=== PATIENT | female | born 1975 | race Caucasian/White ===

== ENCOUNTER 2016-08-03 13:43 | Inpatient (IN) | payer MEDICARE, MEDICAID ==
[~2016-08-03 13:43] MED LIST: CLOZ100 PO; MULT-1238 PO
[2016-08-03] MEDS ORDERED: LORazepam 2 MG TABLET PO PRN (16:15)
[2016-08-03] MEDS ORDERED: ZOLPIDEM TARTRATE 10 MG TABLET PO PRN (16:15)
[2016-08-03 16:18] VITALS: BP 112/79
[2016-08-03 16:39] VITALS: BP 129/77
[2016-08-04 03:40] VITALS: BP 128/76
[2016-08-04 16:05] VITALS: BP 112/66
[2016-08-05 09:16] LABS: BASOPHILS # (AUTO) 0.02 K/uL (0.00-0.20); BASOPHILS % (AUTO) 0.3 % (0.0-2.0); EOSINOPHILS # (AUTO) 0.08 K/uL (0.00-0.70); EOSINOPHILS % (AUTO) 1.04 % (1.0-6.0); HEMATOCRIT 37.7 % (36-46); HEMOGLOBIN 12.2 g/dL (12.0-16.0); LYMPHOCYTES # (AUTO) 1.9 K/uL (1.0-4.8); MEAN CORPUSCULAR HEMOGLOBIN 26.4 pg (26.0-34.0); MEAN CORPUSCULAR HGB CONC 32.4 G/dL (31.0-37.0); MEAN CORPUSCULAR VOLUME 81 fL (80-100); MONOCYTES # (AUTO) 0.3 K/uL (0.1-1.0); MONOCYTES % (AUTO) 4.4 % (2.0-9.0); NEUTROPHILS # (AUTO) 5.2 K/uL (1.8-7.7); NEUTROPHILS % (AUTO) 69.3 % (40.0-70.0); PLATELET COUNT (AUTO) 387 K/uL (150-450); RED BLOOD CELL COUNT(AUTO) 4.63 MIL/uL (4.00-5.20); RED CELL DISTRIBUTION WIDTH 13.7 % (11.5-14.5); WHITE BLOOD COUNT (AUTO) 7.5 K/uL (4.5-11.0)
[2016-08-05 09:37] LABS: ALANINE AMINOTRANSFERASE 31 U/L (12-78); ANION GAP 11 mmol/L (8-16); ASPARTATE AMINOTRANSFERASE 17 U/L (15-37); BILIRUBIN,TOTAL 0.5 mg/dL (0.1-1.0); CALCIUM, TOTAL 9.1 mg/dL (8.8-10.5); CARBON DIOXIDE 27 mmol/L (22-29); CHLORIDE 103 mmol/L (98-107); CHOL/HDL RATIO 5.2 (3.9-5.7); CREATININE 0.79 mg/dL (0.60-1.30); GLOMERULAR FILTR. RATE CALC > 60 mL/min (>60); POTASSIUM 4.4 mmol/L (3.5-5.1); SODIUM SERUM 141 mmol/L (136-145); TOTAL PROTEIN, SERUM 7.5 g/dL (6.4-8.2); UREA NITROGEN, BLOOD 15 mg/dL (7-18)
[2016-08-05 21:22] VITALS: BP 110/68
[2016-08-05] MEDS: PALIPERIDONE PALMITATE 234 MG/1.5 ML SYRINGE IM SCH (21:26)
[2016-08-06 16:13] VITALS: BP 122/81
[2016-08-07 05:46] VITALS: BP 118/63
[2016-08-07 08:28] VITALS: BP 112/76
[2016-08-08 03:38] VITALS: BP 121/77
[2016-08-08 08:19] VITALS: BP 127/68
[2016-08-08 16:26] VITALS: BP 140/84
[2016-08-09 01:34] VITALS: BP 128/77
[2016-08-09 08:04] VITALS: BP 124/75
[2016-08-09 16:07] VITALS: BP 123/72
[2016-08-10 06:40] VITALS: BP 131/66
[2016-08-10 08:30] VITALS: BP 128/72
[2016-08-10 16:25] VITALS: BP 127/77
[2016-08-11 03:29] VITALS: BP 130/76
[2016-08-11 16:33] VITALS: BP 125/82
[2016-08-12 03:35] VITALS: BP 123/74
[2016-08-12 08:07] VITALS: BP 132/71
[2016-08-12 16:29] VITALS: BP 100/60
[2016-08-13 08:22] VITALS: BP 120/74
[2016-08-13 16:00] VITALS: BP 153/76
[2016-08-14 03:42] VITALS: BP 140/78
[2016-08-14 16:02] VITALS: BP 148/79
[2016-08-15 03:32] VITALS: BP 130/78
[2016-08-15 08:21] VITALS: BP 112/73
[2016-08-15 16:30] VITALS: BP 113/71
[2016-08-16 05:32] VITALS: BP 110/72
[2016-08-16 08:17] VITALS: BP 108/95
[2016-08-17 06:43] VITALS: BP 142/77
[2016-08-17 08:15] VITALS: BP 111/80
[2016-08-18 08:06] VITALS: BP 106/64
[2016-08-18 16:00] VITALS: BP 102/70
[2016-08-19 06:18] VITALS: BP 122/83
[2016-08-19 08:13] VITALS: BP 132/70
[2016-08-19 16:00] VITALS: BP 108/67
[2016-08-20 05:37] VITALS: BP 118/74
[2016-08-21 02:00] VITALS: BP 114/76
[2016-08-21 16:00] VITALS: BP 123/82
[2016-08-22 02:21] VITALS: BP 106/77
[2016-08-22 16:06] VITALS: BP 111/68
[2016-08-23 02:57] VITALS: BP 109/71
[2016-08-23] MEDS ORDERED: PERMETHRIN 1% 60 ML LOTION TP ONE (12:00)
[2016-08-24 08:30] VITALS: BP 109/72
[2016-08-24 16:24] VITALS: BP 125/80
[2016-08-25 08:21] VITALS: BP 117/74
[2016-08-25] MEDS ORDERED: IVERMECTIN 3 MG TABLET PO ONE (17:30)
[2016-08-25 17:46] VITALS: BP 118/80
[2016-08-26] MEDS: HALOPERIDOL 5 MG TABLET PO PRN (08:07)
[2016-08-26] MEDS: DIVALPROEX SODIUM 250 MG ER TABLET PO SCH ×3 (08:07→17:00)
[2016-08-26 16:28] VITALS: BP 122/81
[2016-08-27] MEDS: DIVALPROEX SODIUM 250 MG ER TABLET PO SCH ×2 (08:06→17:00)
[2016-08-27 08:30] VITALS: BP 124/76
[2016-08-27] MEDS ORDERED: ZOLPIDEM TARTRATE 10 MG TABLET PO PRN (13:45)
[2016-08-27 16:24] VITALS: BP 123/95
[2016-08-28 08:43] VITALS: BP 119/81
[2016-08-28] MEDS: DIVALPROEX SODIUM 250 MG ER TABLET PO SCH ×2 (09:00→17:00)
[2016-08-29 08:36] VITALS: BP 117/68
[2016-08-29] MEDS: DIVALPROEX SODIUM 250 MG ER TABLET PO SCH ×2 (09:00→17:00)
[2016-08-29 16:00] VITALS: BP 127/78
[2016-08-30 07:13] VITALS: BP 119/72
[2016-08-30 08:30] VITALS: BP 118/70
[2016-08-30] MEDS: DIVALPROEX SODIUM 250 MG ER TABLET PO SCH ×2 (08:37→17:00)
[2016-08-31 07:14] VITALS: BP 125/72
[2016-08-31 08:10] LABS: BASOPHILS % (AUTO) 0.2 % (0.0-2.0); EOSINOPHILS % (AUTO) 1.2 % (1.0-6.0); HEMATOCRIT 37.4 % (36-46); HEMOGLOBIN 12.2 g/dL (12.0-16.0); LYMPHOCYTES # (AUTO) 1.3 K/uL (1.0-4.8); LYMPHOCYTES % (AUTO) 17.9 % (22.0-44.0); MEAN CORPUSCULAR HEMOGLOBIN 26.2 pg (26.0-34.0); MEAN CORPUSCULAR HGB CONC 32.6 G/dL (31.0-37.0); MEAN CORPUSCULAR VOLUME 80 fL (80-100); MONOCYTES # (AUTO) 0.5 K/uL (0.1-1.0); MONOCYTES % (AUTO) 6.9 % (2.0-9.0); NEUTROPHILS # (AUTO) 5.5 K/uL (1.8-7.7); NEUTROPHILS % (AUTO) 73.8 % (40.0-70.0); PLATELET COUNT (AUTO) 419 K/uL (150-450); RED BLOOD CELL COUNT(AUTO) 4.66 MIL/uL (4.00-5.20); RED CELL DISTRIBUTION WIDTH 13.4 % (11.5-14.5); WHITE BLOOD COUNT (AUTO) 7.5 K/uL (4.5-11.0)
[2016-08-31 08:12] VITALS: BP 114/70
[2016-08-31] MEDS: DIVALPROEX SODIUM 250 MG ER TABLET PO SCH ×2 (09:00→17:00)
[2016-08-31 09:01] LABS: ALANINE AMINOTRANSFERASE 25 U/L (12-78); ANION GAP 10 mmol/L (8-16); ASPARTATE AMINOTRANSFERASE 14 U/L (15-37); BILIRUBIN,TOTAL 0.5 mg/dL (0.1-1.0); CALCIUM, TOTAL 8.9 mg/dL (8.8-10.5); CARBON DIOXIDE 26 mmol/L (22-29); CHLORIDE 101 mmol/L (98-107); CREATININE 0.71 mg/dL (0.60-1.30); GLOMERULAR FILTR. RATE CALC > 60 mL/min (>60); SODIUM SERUM 137 mmol/L (136-145); TOTAL PROTEIN, SERUM 7.6 g/dL (6.4-8.2); UREA NITROGEN, BLOOD 17 mg/dL (7-18)
[2016-08-31 09:03] LABS: VALPROIC ACID < 3 mcg/mL (50-100)
[2016-08-31 16:06] VITALS: BP 120/86
[2016-09-01 03:53] VITALS: BP 122/84
[2016-09-01] MEDS: DIVALPROEX SODIUM 250 MG ER TABLET PO SCH ×2 (08:54→17:00)
[2016-09-01] MEDS ORDERED: PERMETHRIN 1% 60 ML LOTION TP ONE (12:00)
[2016-09-01 16:00] VITALS: BP 112/64
[2016-09-02] MEDS: DIVALPROEX SODIUM 250 MG ER TABLET PO SCH ×2 (09:00→17:00)
[2016-09-02] MEDS: PALIPERIDONE PALMITATE 234 MG/1.5 ML SYRINGE IM SCH (09:07)
[2016-09-03 03:46] VITALS: BP 112/77
[2016-09-03] MEDS: DIVALPROEX SODIUM 250 MG ER TABLET PO SCH ×2 (08:22→17:00)
[2016-09-03 08:30] VITALS: BP 135/82
[2016-09-03] MEDS ORDERED: ZOLP10 PO (16:44)
[2016-09-03] MEDS ORDERED: LORA2TAB2 PO (16:44)
[2016-09-03] MEDS ORDERED: PALI234D IM (16:44)
[2016-09-03] MEDS ORDERED: DIVA250T25 PO (16:44)
[2016-09-03 22:47] VITALS: BP 136/81
[2016-09-04] VITALS (7 sets, daily range): BP systolic 107–120; BP diastolic 65–85
[2016-09-04] MEDS: DIVALPROEX SODIUM 250 MG ER TABLET PO SCH ×2 (08:43→16:52)
[2016-09-04] MEDS ORDERED: LEVOFLOXACIN 500 MG TABLET PO SCH (09:00)
[2016-09-04] MEDS ORDERED: LIDOCAINE HCL/PF 1% 2 ML VIAL IM ONE (09:30)
[2016-09-04] MEDS: CefTRIAXone SODIUM 1 GM/VIAL IM SCH (18:05)
[2016-09-04] MEDS ORDERED: ACETAMINOPHEN 325 MG TABLET PO PRN (21:00)
[2016-09-05 06:19] VITALS: BP 117/68
[2016-09-05 08:13] LABS: BASOPHILS % (AUTO) 0.3 % (0.0-2.0); EOSINOPHILS % (AUTO) 1.4 % (1.0-6.0); HEMATOCRIT 40.7 % (36-46); LYMPHOCYTES # (AUTO) 0.9 K/uL (1.0-4.8); LYMPHOCYTES % (AUTO) 22.8 % (22.0-44.0); MEAN CORPUSCULAR HEMOGLOBIN 25.8 pg (26.0-34.0); MEAN CORPUSCULAR HGB CONC 31.9 G/dL (31.0-37.0); MEAN CORPUSCULAR VOLUME 81 fL (80-100); MONOCYTES # (AUTO) 0.4 K/uL (0.1-1.0); MONOCYTES % (AUTO) 8.7 % (2.0-9.0); NEUTROPHILS # (AUTO) 2.8 K/uL (1.8-7.7); NEUTROPHILS % (AUTO) 66.8 % (40.0-70.0); PLATELET COUNT (AUTO) 281 K/uL (150-450); RED BLOOD CELL COUNT(AUTO) 5.04 MIL/uL (4.00-5.20); RED CELL DISTRIBUTION WIDTH 13.6 % (11.5-14.5); WHITE BLOOD COUNT (AUTO) 4.1 K/uL (4.5-11.0)
[2016-09-05 08:40] LABS: ALANINE AMINOTRANSFERASE 407 U/L (12-78); ANION GAP 11 mmol/L (8-16); ASPARTATE AMINOTRANSFERASE 314 U/L (15-37); BILIRUBIN,TOTAL 0.7 mg/dL (0.1-1.0); CALCIUM, TOTAL 8.5 mg/dL (8.8-10.5); CARBON DIOXIDE 26 mmol/L (22-29); CHLORIDE 97 mmol/L (98-107); CREATININE 0.76 mg/dL (0.60-1.30); GLOMERULAR FILTR. RATE CALC > 60 mL/min (>60); POTASSIUM 3.9 mmol/L (3.5-5.1); SODIUM SERUM 134 mmol/L (136-145); TOTAL PROTEIN, SERUM 7.7 g/dL (6.4-8.2); UREA NITROGEN, BLOOD 11 mg/dL (7-18)
[2016-09-05] MEDS: DIVALPROEX SODIUM 250 MG ER TABLET PO SCH ×2 (09:00→17:00)
[2016-09-05] MEDS: LEVOFLOXACIN 250 MG TABLET PO SCH ×2 (09:00→12:12)
[2016-09-05] MEDS: CefTRIAXone SODIUM 1 GM/VIAL IM SCH ×2 (09:00→12:12)
[2016-09-05 10:00] VITALS: BP 96/60
[2016-09-05 12:00] VITALS: BP 134/72
[2016-09-06] MEDS: LORazepam 2 MG TABLET PO PRN ×3 (00:15→13:32)
[2016-09-06 06:38] VITALS: BP 110/70
[2016-09-06 07:21] LABS: ALANINE AMINOTRANSFERASE 1879 U/L (12-78); ALBUMIN 3.6 g/dL (3.4-5.0); ANION GAP 8 mmol/L (8-16); BILIRUBIN,TOTAL 0.8 mg/dL (0.1-1.0); CARBON DIOXIDE 27 mmol/L (22-29); CHLORIDE 96 mmol/L (98-107); CREATININE 0.89 mg/dL (0.60-1.30); GLOMERULAR FILTR. RATE CALC > 60 mL/min (>60); POTASSIUM 3.9 mmol/L (3.5-5.1); SODIUM SERUM 131 mmol/L (136-145); TOTAL PROTEIN, SERUM 7.1 g/dL (6.4-8.2); UREA NITROGEN, BLOOD 10 mg/dL (7-18)
[2016-09-06 07:35] VITALS: BP 122/61
[2016-09-06 07:45] LABS: ASPARTATE AMINOTRANSFERASE 2160 U/L (15-37)
[2016-09-06] MEDS: DIVALPROEX SODIUM 250 MG ER TABLET PO SCH ×2 (09:00→17:55)
[2016-09-06] MEDS: LEVOFLOXACIN 250 MG TABLET PO SCH (09:19)
[2016-09-06] MEDS: HALOPERIDOL 5 MG TABLET PO PRN (09:19)
[2016-09-06 10:42] VITALS: BP 115/67
[2016-09-06] MEDS ORDERED: IBUPROFEN 600 MG TABLET PO PRN (11:15)
[2016-09-06] MEDS: CefTRIAXone SODIUM 1 GM/VIAL IM SCH (11:20)
[2016-09-06] MEDS ORDERED: OLANZapine 5 MG TABLET PO PRN (11:45)
[2016-09-06] MEDS ORDERED: IBUPROFEN 400 MG TABLET PO PRN (13:30)
[2016-09-06 15:00] VITALS: BP 120/78
[2016-09-06 19:00] VITALS: BP 122/62
[2016-09-06 23:00] VITALS: BP 130/68
[2016-09-07 06:30] LABS: INR 1.4 (0.9-1.1); PROTHROMBIN TIME 14.3 SEC (9.4-11.6)
[2016-09-07 06:57] LABS: ALBUMIN 3.6 g/dL (3.4-5.0); ANION GAP 8 mmol/L (8-16); CALCIUM, TOTAL 7.9 mg/dL (8.8-10.5); CARBON DIOXIDE 26 mmol/L (22-29); CHLORIDE 96 mmol/L (98-107); CREATININE 0.92 mg/dL (0.60-1.30); GLOMERULAR FILTR. RATE CALC > 60 mL/min (>60); POTASSIUM 3.6 mmol/L (3.5-5.1); SODIUM SERUM 130 mmol/L (136-145); TOTAL PROTEIN, SERUM 7.1 g/dL (6.4-8.2); UREA NITROGEN, BLOOD 11 mg/dL (7-18)
[2016-09-07 07:37] LABS: ASPARTATE AMINOTRANSFERASE 7004 U/L (15-37)
[2016-09-07 07:38] LABS: ALANINE AMINOTRANSFERASE 5802 U/L (12-78)
[2016-09-07 07:45] VITALS: BP 107/59
[2016-09-07] MEDS: DIVALPROEX SODIUM 250 MG ER TABLET PO SCH (09:17)
[2016-09-07] MEDS: LEVOFLOXACIN 250 MG TABLET PO SCH (09:18)
[2016-09-07] MEDS: CefTRIAXone SODIUM 1 GM/VIAL IM SCH (10:20)
[2016-09-07 11:00] VITALS: BP 117/71
[2016-09-07 12:25] LABS: ANION GAP 8 mmol/L (8-16); CARBON DIOXIDE 25 mmol/L (22-29); CHLORIDE 96 mmol/L (98-107); CREATININE 0.92 mg/dL (0.60-1.30); GLOMERULAR FILTR. RATE CALC > 60 mL/min (>60); POTASSIUM 3.7 mmol/L (3.5-5.1); SODIUM SERUM 129 mmol/L (136-145); UREA NITROGEN, BLOOD 11 mg/dL (7-18)
[2016-09-07 12:40] LABS: ALBUMIN 3.7 g/dL (3.4-5.0); BILIRUBIN,TOTAL 2.2 mg/dL (0.1-1.0); TOTAL PROTEIN, SERUM 7.4 g/dL (6.4-8.2)
[2016-09-07] MEDS ORDERED: MAGNESIUM HYDROXIDE SUSPENSION 30 ML UDCUP PO PRN (12:45)
[2016-09-07] MEDS ORDERED: PANTOPRAZOLE SODIUM 40 MG DR TABLET PO SCH (12:45)
[2016-09-07] MEDS ORDERED: ONDANSETRON HCL 4 MG/2 ML VIAL IVP PRN (12:45)
[2016-09-07 12:53] LABS: ALANINE AMINOTRANSFERASE 5937 U/L (12-78)
[2016-09-07 12:59] LABS: ASPARTATE AMINOTRANSFERASE 6183 U/L (15-37); INR 1.4 (0.9-1.1); PROTHROMBIN TIME 14.7 SEC (9.4-11.6)
[2016-09-07 13:08] LABS: HEPATITIS Bs ANTIGEN SCREEN P Negative (Negative); HEPATITIS C AB SCREEN <0.1 s/co ratio (0.0-0.9)
[2016-09-07] MEDS ORDERED: SODIUM CHLORIDE 0.9% 1,000 ML IV SCH (13:15)
[2016-09-07 13:38] LABS: ANION GAP 14 mmol/L (8-16); CALCIUM, TOTAL 7.9 mg/dL (8.8-10.5); CARBON DIOXIDE 22 mmol/L (22-29); CHLORIDE 94 mmol/L (98-107); CREATININE 0.84 mg/dL (0.60-1.30); GLOMERULAR FILTR. RATE CALC > 60 mL/min (>60); POTASSIUM 3.7 mmol/L (3.5-5.1); SODIUM SERUM 130 mmol/L (136-145); UREA NITROGEN, BLOOD 10 mg/dL (7-18)
[2016-09-07] MEDS ORDERED: IOVERSOL 350 MG/ML 100 ML VIAL ONE (13:53)
[2016-09-07] MEDS ORDERED: SODIUM CHLORIDE 0.9% 100 ML ONE (13:53)
[2016-09-07] MEDS ORDERED: BARIUM SULFATE 0.1% SUSPENSION 450 ML BOTTLE ONE (13:53)
[2016-09-09 06:06] LABS: CERULOPLASMIN 33.8 mg/dL (19.0-39.0)
[2016-09-10 09:38] LABS: MITOCHONDRIAL M2 AB IGG 16.9 Units (0.0-20.0)
[2016-09-11 16:11] LABS: ANA,IFA (TITER & PATTERN) Negative
[2016-09-13] MEDS ORDERED: DIPH25 PO (15:14)
[2016-09-13] MEDS ORDERED: DIVA250T25 PO (15:28)
== END 2016-09-07 15:00 | disposition short-term general hospital (02) | DRG 885 ==
LOC: B3A 16:18 → 3EC 09-05 22:20
PROVIDERS: ADMIT Psychiatry & Neurology Child & Adolescent Psychiatry; ATTEND Psychiatry & Neurology Child & Adolescent Psychiatry
DX: F20.0 Paranoid schizophrenia (principal); E78.5 Hyperlipidemia, unspecified; R91.8 Other nonspecific abnormal finding of lung field; R74.8 Abnormal levels of other serum enzymes; Z88.8 Allergy status to other drugs, medicaments and biological substances; Z79.899 Other long term (current) drug therapy; Z59.0 Homelessness
CPT/HCPCS: 71250; 80074; 82390; 83516; 86038; 87081; J0696; J3490; J7050

== ENCOUNTER 2016-09-03 16:20 | Emergency (ER) | payer OTHER, MEDICAID ==
[~2016-09-03] VITALS: Ht 149.9 cm; Wt 72.3 kg
[2016-09-03] MEDS ORDERED: LORA2TAB2 PO (16:44)
[2016-09-03] MEDS ORDERED: PALI234D IM (16:44)
[2016-09-03] MEDS ORDERED: ZOLP10 PO (16:44)
[2016-09-03] MEDS ORDERED: DIVA250T25 PO (16:44)
[2016-09-03] MEDS ORDERED: ACETAMINOPHEN 500 MG TABLET PO ONE (17:00)
[2016-09-03] MEDS ORDERED: SODIUM CHLORIDE 0.9% 1,000 ML IV ONE ×2 (17:00→19:15)
[2016-09-03 17:24] LABS: HEMATOCRIT 39.3 % (36-46); HEMOGLOBIN 12.7 g/dL (12.0-16.0); MEAN CORPUSCULAR HEMOGLOBIN 25.9 pg (26.0-34.0); MEAN CORPUSCULAR HGB CONC 32.4 G/dL (31.0-37.0); MEAN CORPUSCULAR VOLUME 80 fL (80-100); PLATELET COUNT (AUTO) 361 K/uL (150-450); RED BLOOD CELL COUNT(AUTO) 4.91 MIL/uL (4.00-5.20); RED CELL DISTRIBUTION WIDTH 13.4 % (11.5-14.5); WHITE BLOOD COUNT (AUTO) 5.4 K/uL (4.5-11.0)
[2016-09-03 17:34] LABS: ANION GAP 9 mmol/L (8-16); CALCIUM, TOTAL 8.8 mg/dL (8.8-10.5); CARBON DIOXIDE 27 mmol/L (22-29); CHLORIDE 96 mmol/L (98-107); CREATININE 0.89 mg/dL (0.60-1.30); GLOMERULAR FILTR. RATE CALC > 60 mL/min (>60); POTASSIUM 4.3 mmol/L (3.5-5.1); SODIUM SERUM 132 mmol/L (136-145); UREA NITROGEN, BLOOD 16 mg/dL (7-18)
[2016-09-03 17:39] LABS: ALANINE AMINOTRANSFERASE 73 U/L (12-78); ALBUMIN 4.1 g/dL (3.4-5.0); ASPARTATE AMINOTRANSFERASE 52 U/L (15-37); BILIRUBIN,TOTAL 0.6 mg/dL (0.1-1.0); TOTAL PROTEIN, SERUM 7.8 g/dL (6.4-8.2); VALPROIC ACID < 3 mcg/mL (50-100)
[2016-09-03 17:42] LABS: LACTIC ACID 1.3 mmol/L (0.4-2.0)
[2016-09-03 17:57] LABS: BAND NEUTROPHILS % (MANUAL) 26 % (1-5); LYMPHOCYTES % (MANUAL) 8 % (22-44); TOTAL CELLS COUNTED 100
[2016-09-03 18:27] LABS: APPEARANCE,URINE CLEAR (CLEAR); GLUCOSE, URINE (UA) NEGATIVE (NEGATIVE); KETONES,URINE NEGATIVE (NEGATIVE); LEUKOCYTE ESTERASE ,URINE NEGATIVE (NEGATIVE); OCCULT BLOOD,URINE SMALL (NEGATIVE); PH,URINE 6.5 (5.0-8.0); PROTEIN,URINE NEGATIVE (NEGATIVE)
[2016-09-03 18:28] LABS: ADD UA MICROSCOPIC YES
[2016-09-03 18:30] LABS: SQUAMOUS EPITHELIAL CELL,UR Few /LPF (None Seen); WBC,URINE 0-2 /HPF (0-5)
[2016-09-03 19:47] LABS: PROCALCITONIN (PCT) 0.23 ng/mL (<0.50)
[2016-09-03] MEDS ORDERED: CefTRIAXone 1 GM/DEXTROSE 50 ML IV ONE (20:15)
[2016-09-03] MEDS ORDERED: AZITHROMYCIN 500 MG/NS 250 ML IV ONE (20:15)
[2016-09-03 21:08] LABS: INFLUENZA TYPE B NEGATIVE FOR TYPE B (NEGATIVE)
[2016-09-03 21:56] VITALS: BP 127/75
== END 2016-09-03 22:22 | disposition home or self-care (01) ==
LOC: EMS 16:21
DX: D72.825 Bandemia (principal); F20.9 Schizophrenia, unspecified; E03.9 Hypothyroidism, unspecified; E78.00 Pure hypercholesterolemia, unspecified; Z88.8 Allergy status to other drugs, medicaments and biological substances
CPT/HCPCS: 36415; 71010; 80053; 80164; 80307; 81001; 81025; 83605; 84145; 84703; 85025; 87040; 87804; 96361; 96365; 96367; 99285; J0456; J0696; J7030

== ENCOUNTER 2016-09-05 14:09 | Emergency (ER) | payer MEDICARE, MEDICAID ==
[~2016-09-05] VITALS: Ht 167.6 cm; Wt 78.0 kg
[~2016-09-05 14:09] MED LIST changes: +DIVA250T25 PO; +LORA2TAB2 PO; +PALI234D IM; +ZOLP10 PO
[2016-09-05] MEDS ORDERED: SODIUM CHLORIDE 0.9% 1,000 ML IV ONE (15:00)
[2016-09-05 15:16] LABS: HEMATOCRIT 36.9 % (36-46); HEMOGLOBIN 12.1 g/dL (12.0-16.0); MEAN CORPUSCULAR HEMOGLOBIN 26.4 pg (26.0-34.0); MEAN CORPUSCULAR HGB CONC 32.9 G/dL (31.0-37.0); MEAN CORPUSCULAR VOLUME 80 fL (80-100); PLATELET COUNT (AUTO) 257 K/uL (150-450); RED CELL DISTRIBUTION WIDTH 13.7 % (11.5-14.5); WHITE BLOOD COUNT (AUTO) 3.8 K/uL (4.5-11.0)
[2016-09-05 15:37] LABS: ANION GAP 8 mmol/L (8-16); CALCIUM, TOTAL 8.1 mg/dL (8.8-10.5); CARBON DIOXIDE 28 mmol/L (22-29); CHLORIDE 99 mmol/L (98-107); CREATININE 0.84 mg/dL (0.60-1.30); GLOMERULAR FILTR. RATE CALC > 60 mL/min (>60); POTASSIUM 3.9 mmol/L (3.5-5.1); SODIUM SERUM 135 mmol/L (136-145); UREA NITROGEN, BLOOD 9 mg/dL (7-18)
[2016-09-05 15:43] LABS: LACTIC ACID 1.1 mmol/L (0.4-2.0)
[2016-09-05 15:53] LABS: ALANINE AMINOTRANSFERASE 505 U/L (12-78); ALBUMIN 3.7 g/dL (3.4-5.0); ASPARTATE AMINOTRANSFERASE 435 U/L (15-37); BILIRUBIN,TOTAL 0.4 mg/dL (0.1-1.0); TOTAL PROTEIN, SERUM 7.5 g/dL (6.4-8.2); VALPROIC ACID < 3 mcg/mL (50-100)
[2016-09-05 16:17] LABS: BAND NEUTROPHILS % (MANUAL) 27 % (1-5); EOSINOPHILS % (MANUAL) 1 % (1-6); LYMPHOCYTES % (MANUAL) 14 % (22-44); TOTAL CELLS COUNTED 100
[2016-09-05] MEDS ORDERED: LEVOFLOXACIN 750 MG/D5% WATER 150 ML IV ONE (18:00)
[2016-09-05 18:16] LABS: APPEARANCE,URINE CLEAR (CLEAR); GLUCOSE, URINE (UA) NEGATIVE (NEGATIVE); KETONES,URINE NEGATIVE (NEGATIVE); LEUKOCYTE ESTERASE ,URINE NEGATIVE (NEGATIVE); OCCULT BLOOD,URINE NEGATIVE (NEGATIVE); PROTEIN,URINE NEGATIVE (NEGATIVE)
[2016-09-05 18:17] LABS: ADD UA MICROSCOPIC NO
[2016-09-05 20:10] VITALS: BP 130/83
[2016-09-13] MEDS ORDERED: DIPH25 PO (15:14)
[2016-09-13] MEDS ORDERED: DIVA250T25 PO (15:28)
== END 2016-09-05 21:44 | disposition other institution (70) ==
LOC: EMS 14:10 → 3EC 20:16 → UNDOADMIN 20:16 → EMS 21:44
DX: R74.0 Nonspecific elevation of levels of transaminase and lactic acid dehydrogenase [LDH] (principal); E78.5 Hyperlipidemia, unspecified; F29 Unspecified psychosis not due to a substance or known physiological condition; Z91.19 Patient's noncompliance with other medical treatment and regimen; E87.1 Hypo-osmolality and hyponatremia
CPT/HCPCS: 36415; 71020; 76700; 80053; 80164; 80307; 81003; 83605; 84703; 85025; 87040; 96361; 96365; 99285; G0480; J1956; J7030

== ENCOUNTER 2016-09-25 12:45 | Inpatient (IN) | payer MEDICARE, MEDICAID ==
[~2016-09-25] VITALS: Ht 152.4 cm; Wt 71.4 kg
[~2016-09-25 12:45] MED LIST changes: -CLOZ100 PO; +DIPH25 PO; -LORA2TAB2 PO; -MULT-1238 PO; -PALI234D IM; -ZOLP10 PO
[2016-09-25] MEDS ORDERED: HALOPERIDOL 5 MG TABLET PO PRN (14:00)
[2016-09-25] MEDS ORDERED: ZOLPIDEM TARTRATE 10 MG TABLET PO PRN (14:00)
[2016-09-25] MEDS ORDERED: LORazepam 2 MG TABLET PO PRN (14:00)
[2016-09-25] MEDS ORDERED: OLANZapine 5 MG TABLET PO PRN (14:15)
[2016-09-25 14:23] VITALS: BP 127/77
[2016-09-25] MEDS ORDERED: PERMETHRIN 1% 60 ML LOTION TP ONE (14:30)
[2016-09-25] MEDS ORDERED: PNEUMOCOCCAL VACCINE POLYVALENT 0.5 ML VIAL [PPSV23] IM ONE (15:15)
[2016-09-25] MEDS ORDERED: PALI234D IM (15:22)
[2016-09-25] MEDS ORDERED: PANT40TA25 PO (15:23)
[2016-09-25 16:14] VITALS: BP 130/79
[2016-09-26 08:13] VITALS: BP 116/65
[2016-09-26 08:29] LABS: BASOPHILS % (AUTO) 0.7 % (0.0-2.0); EOSINOPHILS % (AUTO) 1.1 % (1.0-6.0); HEMATOCRIT 33.8 % (36-46); HEMOGLOBIN 11.4 g/dL (12.0-16.0); LYMPHOCYTES % (AUTO) 37.4 % (22.0-44.0); MEAN CORPUSCULAR HEMOGLOBIN 27.5 pg (26.0-34.0); MEAN CORPUSCULAR HGB CONC 33.9 G/dL (31.0-37.0); MEAN CORPUSCULAR VOLUME 81 fL (80-100); MONOCYTES # (AUTO) 0.4 K/uL (0.1-1.0); MONOCYTES % (AUTO) 8.2 % (2.0-9.0); NEUTROPHILS # (AUTO) 2.8 K/uL (1.8-7.7); NEUTROPHILS % (AUTO) 52.6 % (40.0-70.0); PLATELET COUNT (AUTO) 431 K/uL (150-450); RED BLOOD CELL COUNT(AUTO) 4.17 MIL/uL (4.00-5.20); RED CELL DISTRIBUTION WIDTH 15.7 % (11.5-14.5); WHITE BLOOD COUNT (AUTO) 5.4 K/uL (4.5-11.0)
[2016-09-26] MEDS ORDERED: DIVALPROEX SODIUM 250 MG DR TABLET PO SCH (09:00)
[2016-09-26 09:02] LABS: ALANINE AMINOTRANSFERASE 93 U/L (12-78); ALBUMIN 3.5 g/dL (3.4-5.0); ANION GAP 8 mmol/L (8-16); ASPARTATE AMINOTRANSFERASE 30 U/L (15-37); BILIRUBIN,TOTAL 1.1 mg/dL (0.1-1.0); CALCIUM, TOTAL 8.7 mg/dL (8.8-10.5); CARBON DIOXIDE 27 mmol/L (22-29); CHLORIDE 103 mmol/L (98-107); CREATININE 0.85 mg/dL (0.60-1.30); GLOMERULAR FILTR. RATE CALC > 60 mL/min (>60); POTASSIUM 3.7 mmol/L (3.5-5.1); SODIUM SERUM 138 mmol/L (136-145); THYROID STIMULATING HORMONE 2.64 uIU/mL (0.36-3.74); TOTAL PROTEIN, SERUM 7.7 g/dL (6.4-8.2); UREA NITROGEN, BLOOD 9 mg/dL (7-18); VALPROIC ACID 21 mcg/mL (50-100)
[2016-09-26 16:55] VITALS: BP 110/71
[2016-09-26] MEDS: DIVALPROEX SODIUM 500 MG DR TABLET PO SCH (17:00)
[2016-09-27 03:22] VITALS: BP 117/73
[2016-09-27 08:46] VITALS: BP 117/67
[2016-09-27] MEDS: DIVALPROEX SODIUM 500 MG DR TABLET PO SCH ×2 (09:38→16:42)
[2016-09-27] MEDS ORDERED: PERMETHRIN 1% 60 ML LOTION TP ONE (09:45)
[2016-09-27 16:09] VITALS: BP 122/85
[2016-09-28 00:25] VITALS: BP 114/69
[2016-09-28 08:03] VITALS: BP 97/50
[2016-09-28] MEDS: DIVALPROEX SODIUM 500 MG DR TABLET PO SCH ×2 (08:32→16:40)
[2016-09-28 16:32] VITALS: BP 121/68
[2016-09-29 04:06] VITALS: BP 112/76
[2016-09-29] MEDS: DIVALPROEX SODIUM 500 MG DR TABLET PO SCH ×2 (08:15→16:16)
[2016-09-29 08:21] VITALS: BP 126/71
[2016-09-29 16:39] VITALS: BP 125/88
[2016-09-30 03:34] VITALS: BP 124/74
[2016-09-30 08:14] VITALS: BP 117/80
[2016-09-30] MEDS: DIVALPROEX SODIUM 500 MG DR TABLET PO SCH ×2 (08:38→16:30)
[2016-09-30 16:02] VITALS: BP 123/71
[2016-10-01 06:27] VITALS: BP 120/76
[2016-10-01 08:06] VITALS: BP 126/79
[2016-10-01] MEDS: DIVALPROEX SODIUM 500 MG DR TABLET PO SCH ×2 (09:22→16:55)
[2016-10-01 16:02] VITALS: BP 110/72
[2016-10-02 01:23] VITALS: BP 117/63
[2016-10-02 08:39] VITALS: BP 113/62
[2016-10-02] MEDS: DIVALPROEX SODIUM 500 MG DR TABLET PO SCH ×2 (08:40→16:33)
[2016-10-02 16:14] VITALS: BP 144/83
[2016-10-03 01:45] VITALS: BP 127/77
[2016-10-03 08:10] VITALS: BP 109/70
[2016-10-03] MEDS: DIVALPROEX SODIUM 500 MG DR TABLET PO SCH ×2 (08:19→16:17)
[2016-10-03] MEDS ORDERED: PALIPERIDONE PALMITATE 234 MG/1.5 ML SYRINGE IM SCH (09:00)
[2016-10-03 16:00] VITALS: BP 136/75
[2016-10-04 07:05] VITALS: BP 125/72
[2016-10-04] MEDS: DIVALPROEX SODIUM 500 MG DR TABLET PO SCH ×2 (08:41→16:36)
[2016-10-04 16:37] VITALS: BP 126/80
[2016-10-05 06:23] VITALS: BP 123/75
[2016-10-05] MEDS: DIVALPROEX SODIUM 500 MG DR TABLET PO SCH ×2 (08:31→16:53)
[2016-10-05 16:11] VITALS: BP 120/77
[2016-10-06 06:26] VITALS: BP 104/60
[2016-10-06] MEDS: DIVALPROEX SODIUM 500 MG DR TABLET PO SCH ×2 (08:27→16:18)
[2016-10-06 17:37] VITALS: BP 105/69
[2016-10-07 05:59] VITALS: BP 119/67
[2016-10-07] MEDS: DIVALPROEX SODIUM 500 MG DR TABLET PO SCH ×2 (08:22→16:01)
[2016-10-07 08:42] VITALS: BP 113/60
[2016-10-07 16:14] VITALS: BP 109/75
[2016-10-08 06:00] VITALS: BP 110/76
[2016-10-08] MEDS: DIVALPROEX SODIUM 500 MG DR TABLET PO SCH ×2 (08:13→17:00)
[2016-10-08 11:25] VITALS: BP 107/64
[2016-10-08 16:13] VITALS: BP 109/61
[2016-10-09 01:46] VITALS: BP 102/62
[2016-10-09] MEDS: DIVALPROEX SODIUM 500 MG DR TABLET PO SCH (08:05)
[2016-10-09 08:42] VITALS: BP 113/68
== END 2016-10-09 16:10 | disposition home or self-care (01) | DRG 885 ==
LOC: B3A 14:07 → EDSTATUS 14:11 → B3A 10-06 16:26
PROVIDERS: ADMIT Psychiatry & Neurology Psychiatry; ATTEND Psychiatry & Neurology Psychiatry
DX: F20.0 Paranoid schizophrenia (principal); Z59.0 Homelessness; E78.5 Hyperlipidemia, unspecified; B86 Scabies; D64.9 Anemia, unspecified; Z91.14 Patient's other noncompliance with medication regimen
CPT/HCPCS: 84436; 84439; 84443; 87081